=== PATIENT | male | born 1975 | race Caucasian/White ===

== ENCOUNTER 2018-05-21 07:00 | Day surgery (SDC) | payer OTHER ==
[2018-05-21] MEDS ORDERED: GLYCOPYRROLATE 0.4 MG INJ (08:26)
[2018-05-21] MEDS ORDERED: NEOSTIGMINE 3 MG/3 ML SYRINGE (08:26)
[2018-05-21] MEDS ORDERED: ROCURONIUM 50 MG INJ (08:26)
[2018-05-21] MEDS ORDERED: FENTAnyl 50 MCG/ML VIAL (08:26)
[2018-05-21] MEDS ORDERED: PROPOFOL 20 ML (08:26)
[2018-05-21] MEDS ORDERED: CEFAZOLIN 1 GM INJ (08:26)
[2018-05-21] MEDS ORDERED: MIDAZOLAM 1 MG/ML 2 ML INJ (08:26)
[2018-05-21] MEDS ORDERED: DEXAMETHASONE 4 MG/ML 1 ML INJ (08:27)
[2018-05-21] MEDS ORDERED: ONDANSETRON 4 MG INJ (08:27)
[2018-05-21] MEDS ORDERED: ROPIVACAINE 0.5 % 30 ML VIAL (08:27)
[2018-05-21 08:37] LABS: ADD MAN DIFF? NO
[2018-05-21 08:39] LABS: WHITE BLOOD COUNT 5.8 10^3/ul (4.8-10.8)
[2018-05-21 08:39] LABS: BASOPHILS % 0.5 % (0.0-2.0); EOSINOPHILS # 0.2 10^3/ul (0.0-0.5); EOSINOPHILS % 2.8 % (0.0-7.0); HEMATOCRIT 40.2 % (42.0-52.0); LYMPHOCYTES # 1.4 10^3/ul (0.8-2.9); LYMPHOCYTES % 24.6 % (15.0-51.0); MEAN CORPUSCULAR HEMOGLOBIN 31.5 pg (29.0-33.0); MEAN CORPUSCULAR HGB CONC 34.8 g/dl (32.0-37.0); MEAN CORPUSCULAR VOLUME 90.5 fl (82.0-101.0); MEAN PLATELET VOLUME 9.8 fl (7.4-10.4); MONOCYTE # 0.6 10^3/ul (0.3-0.9); MONOCYTES % 9.7 % (0.0-11.0); NEUTROPHIL # 3.6 10^3/ul (1.6-7.5); NEUTROPHILS % 61.5 % (39.0-77.0); PLATELET COUNT 290 10^3/UL (140-415); RED BLOOD COUNT 4.44 10^6/ul (4.70-6.10)
[2018-05-21] MEDS ORDERED: LABETALOL HCL 20MG INJ (10:25)
[2018-05-21] MEDS ORDERED: LABETALOL HCL 20MG INJ IV (11:00)
[2018-05-21] MEDS ORDERED: HYDROmorphONE 1 MG/5 ML IV SYRINGE IV ×3 (11:00)
[2018-05-21] MEDS ORDERED: hydrALAzine 20 MG INJ IV (11:00)
[2018-05-21] MEDS ORDERED: OXYCODONE/ACETAMINOPHEN (5/325) TAB PO ×2 (11:00)
[2018-05-21] MEDS ORDERED: FENTAnyl 50 MCG/ML VIAL IV ×3 (11:00)
[2018-05-21] MEDS ORDERED: IPRATROPIUM (NEB) 0.5 MG/2.5 ML AMP HHN (11:00)
[2018-05-21] MEDS ORDERED: TRIMETHOBENZAMIDE 100 MG/ML VIAL IM (11:00)
[2018-05-21] MEDS ORDERED: DIPHENHYDRAMINE 50 MG INJ IV (11:00)
[2018-05-21] MEDS ORDERED: MIDAZOLAM 1 MG/ML 2 ML INJ IV (11:00)
[2018-05-21] MEDS ORDERED: EPHEDrine SULFATE 50 MG/5 ML SYG IV (11:00)
[2018-05-21] MEDS ORDERED: MEPERIDINE 25 MG INJ IV (11:00)
[2018-05-21] MEDS ORDERED: ALBUTEROL 0.083% (NEB) 2.5 MG/3 ML AMP HHN (11:00)
[2018-05-21] MEDS: EPINEPHrine 1 MG/ML 30 ML INJ (11:05)
[2018-05-21] MEDS: morphine SULFATE/PF (10 MG/10 ML) INJ (12:21)
[2018-05-21] MEDS: SODIUM CL BACTERIOSTATIC 30 ML INJ (12:24)
[2018-05-21] MEDS ORDERED: SUGAMMADEX SODIUM 200 MG/2 ML VIAL IV (12:38)
[2018-05-21] MEDS: ONDANSETRON 4 MG INJ IV (13:23)
== END 2018-05-21 15:34 | disposition home or self-care (01) ==
LOC: SDS 07:00
DX: M75.101 Unspecified rotator cuff tear or rupture of right shoulder, not specified as traumatic (principal); M25.311 Other instability, right shoulder; S43.431D Superior glenoid labrum lesion of right shoulder, subsequent encounter; X58.XXXD Exposure to other specified factors, subsequent encounter; F17.200 Nicotine dependence, unspecified, uncomplicated
CPT/HCPCS: 29806; 85025

== ENCOUNTER 2019-04-07 05:39 | Day surgery (SDC) | payer OTHER ==
[2019-04-07 06:52] LABS: ADD MAN DIFF? NO
[2019-04-07 06:53] LABS: BASOPHILS % 0.4 % (0.0-2.0); EOSINOPHILS # 0.2 10^3/ul (0.0-0.5); EOSINOPHILS % 2.3 % (0.0-7.0); HEMATOCRIT 40.1 % (42.0-52.0); HEMOGLOBIN 13.8 g/dl (14.0-18.0); LYMPHOCYTES # 2.3 10^3/ul (0.8-2.9); LYMPHOCYTES % 31.7 % (15.0-51.0); MEAN CORPUSCULAR HEMOGLOBIN 30.4 pg (29.0-33.0); MEAN CORPUSCULAR HGB CONC 34.4 g/dl (32.0-37.0); MEAN CORPUSCULAR VOLUME 88.3 fl (82.0-101.0); MEAN PLATELET VOLUME 9.3 fl (7.4-10.4); MONOCYTE # 0.7 10^3/ul (0.3-0.9); MONOCYTES % 9.7 % (0.0-11.0); NEUTROPHIL # 4.1 10^3/ul (1.6-7.5); NEUTROPHILS % 55.4 % (39.0-77.0); PLATELET COUNT 317 10^3/UL (140-415); RED BLOOD COUNT 4.54 10^6/ul (4.70-6.10); RED CELL DISTRIBUTION WIDTH 11.7 % (11.5-14.5)
[2019-04-07 06:53] LABS: WHITE BLOOD COUNT 7.3 10^3/ul (4.8-10.8)
[2019-04-07] MEDS ORDERED: SOD CHLORIDE 0.9% 1,000 ML IV (07:00)
[2019-04-07] MEDS ORDERED: FENTAnyl 50 MCG/ML VIAL (07:05)
[2019-04-07] MEDS ORDERED: HEPARIN 1000 UNITS/ML 10 ML INJ (07:05)
[2019-04-07] MEDS ORDERED: LIDOCAINE 1% (MDV) 20 ML INJ (07:05)
[2019-04-07] MEDS ORDERED: MIDAZOLAM 1 MG/ML 2 ML INJ (07:05)
[2019-04-07] MEDS ORDERED: VERAPAMIL 5 MG INJ (07:06)
[2019-04-07] MEDS ORDERED: NITROGLYCERIN (IC) 100 MCG/ML INJ (07:06)
[2019-04-07 07:19] LABS: ANION GAP 9 (5-13); BLOOD UREA NITROGEN 20 mg/dl (7-20); CALCIUM 9.6 mg/dl (8.4-10.2); CARBON DIOXIDE 30 mmol/L (21-31); CHLORIDE 101 mmol/L (97-110); CREATININE 0.97 mg/dl (0.61-1.24); Estimated GFR > 60 mL/min (>60); GLUCOSE 106 mg/dl (70-220); INR 0.89; POTASSIUM 4.4 mmol/L (3.5-5.1); PROTIME 12.2 Sec (11.9-14.9); SODIUM 140 mmol/L (135-144)
[2019-04-07 07:20] LABS: PARTIAL THROMBOPLASTIN TIME 26.4 Sec (23.0-35.0)
[2019-04-07] MEDS ORDERED: ACETAMINOPHEN 325 MG TAB PO (08:30)
[2019-04-07] MEDS ORDERED: AL HYDROX/MG HYDROX/SIMETH 30 ML CUP PO (08:30)
[2019-04-07] MEDS ORDERED: ONDANSETRON 4 MG INJ IV (08:30)
[2019-04-07] MEDS: SOD CHLORIDE 0.9% 1,000 ML IV (09:10)
== END 2019-04-07 11:36 | disposition home or self-care (01) ==
LOC: SDS 05:39
DX: R06.00 Dyspnea, unspecified (principal); I73.9 Peripheral vascular disease, unspecified; I11.0 Hypertensive heart disease with heart failure; I50.42 Chronic combined systolic (congestive) and diastolic (congestive) heart failure; I42.9 Cardiomyopathy, unspecified
CPT/HCPCS: 80048; 85025; 85610; 85730; 93454